=== PATIENT | female | born 1960 | race Caucasian/White ===

== ENCOUNTER 2024-08-26 15:51 | Emergency (ER) | payer MEDICAID, SELFPAY ==
[2024-08-26] VITALS (9 sets, daily range): BP systolic 165–189; BP diastolic 93–123; PULSE 88–131; RESP 14–20; TEMP 36–37.1; O2SAT 94–99; BMI 29.9
--- NOTE | 2024-08-26 16:11 | XR_ITS ---
Examination: AP chest single view TECHNIQUE: AP portable upright chest single view Date and time: August 26, 2024 1635 hours INDICATIONS: Chest pain today FINDINGS: Normal heart size. Suspicious for early left base pneumonia Osseous structures are intact. IMPRESSION: Suspicious for early left base pneumonia
--- NOTE | 2024-08-26 16:52 | EDNOTE_ITS ---
ED Abdominal Pain RME/HPI General Chief Complaint: Abdominal Pain Stated complaint: ABD PAIN Time seen by provider: 08/26/24 16:41 Arrival date/time: 08/26/24 15:51 RME / HPI RME / HPI narrative: 63-year-old female patient with history of hypertension in the past, stopped taking blood pressure medication for more than 8 years, having seen a doctor for 8 years, came in for evaluation regarding abdominal pain. Patient has been having abdominal pain for several weeks, getting worse for the last few days. Patient denies any chest pain. Patient denies any vomiting denies any diarrhea denies any constipation. Family checked his blood sugar few hours ago and it was more than 300. Patient is not taking anything for diabetes. Positive family history of diabetes mellitus. Related Data Home Medications ?Medication ?Instructions ?Recorded ?Confirmed amlodipine 10 mg tablet (Norvasc) 10 mg PO QDAY #0 tab s 06/30/16 hydrochlorothiazide 25 mg tablet 25 mg PO QAM #0 tabs 06/30/16 losartan 50 mg tablet (Cozaar) 50 mg PO QDAY #0 tabs 0 06/30/16 metoprolol succinate 100 mg PO QDAY ##0 06/30/16 tablet,extended release 24 hr Previous Rx's ?Medication ?Instructions ?Recorded lisinopril 20 mg tablet 20 mg PO QDAY #30 tabs 08/26 metformin 500 mg tablet 500 mg PO BIDWMEAL #60 tabs 08/26/24 Allergies Allergy/AdvReac Type Severity Reaction Status Date / Time NKA* Allergy Uncoded 08/26/24 15:54 Review of Systems Review of Systems Narrative Review of Systems: Review of system reviewed and within normal limits except mentioned in HPI ED Exam Narrative Physical exam: VITAL SIGNS: Reviewed. GENERAL APPEARANCE: Alert and interactive, follows commands, no acute distress, HEAD AND FACE: Non-traumatic. ENT: PERRL, pink conjunctivitis, eyelid no trauma, Mucous membrane moist. NECK: Supple, nontender, no nuchal rigidity. CHEST: No tenderness, no crepitus, no paradoxical movement, no retractions. LUNGS: Clear, well ventilated, symmetric, no rales, no wheezing, no ronchi, no stridor, good breath sounds bilaterally. HEART: Tachycardic, no murmur, no gallops. ABDOMEN: Soft, positive bowel sounds, nondistended, no guarding, nontender, no rebound, no masses, RECTAL: Deferred. GENITAL: Deferred. NEUROLOGICAL: Gross motor function intact sensory function intact, Appropriate for age. MUSCULOSKELETAL: low back nontender, full range of motion. EXTREMITIES: Nontender, full range of motion. SKIN: Color pink, dry, no rash, no lacerations, no abrasions, no contusions. LYMPHATICS: Deferred. Course Quality Measures none Orders Category Date Time Status CT Screening NOW Care 08/26/24 18:09 Active Guard Immigration NOW Care 08/26/24 16:11 Active EKG (ED ONLY) *Do not use* NOW Care 08/26/24 16:[address] abdomen pelvis w con Stat Exams 08/26/24 18:08 Completed EKG (ED Only) Stat Exams 08/26/24 16:11 Ordered XR chest 1V portable Stat Exams 08/26/24 16:11 Completed B-Type Natriuretic Peptide Stat Lab 08/26/24 16:56 Completed CBC Stat Lab 08/26/24 16:56 Completed Comprehensive Metabolic Panel Stat Lab 08/26/24 16:56 Completed Drug Screen,Urine Stat Lab 08/26/24 17:40 Completed Hemoglobin A1C [Glycohemoglobin w (eAG)] Stat Lab 08/26/24 16:56 Completed Lipase Stat Lab 08/26/24 16:56 Completed Magnesium Stat Lab 08/26/24 16:56 Completed Partial Thromboplastin Time Stat Lab 08/26/24 16:56 Completed Prothrombin Time with INR Stat Lab 08/26/24 16:56 Completed T4 (Thyroxine) Stat Lab 08/26/24 16:56 Received Thyroid Stimulating Hormone Stat Lab 08/26/24 16:56 Completed Troponin I Stat Lab 08/26/24 16:56 Completed Urinalysis Stat Lab 08/26/24 17:40 Completed Labetalol IV [Trandate IV] Med 08/26/24 16:51 Discontinued 10 mg IVP X1 ONE Lisinopril [Prinivil] Med 08/26/24 21:02 Discontinued 20 mg PO X1 ONE metFORMIN [Glucophage] Med 08/26/24 21:02 Discontinued 500 mg PO X1 ONE Vital Signs Vital signs: Vital Signs Temperature 98.5 F 08/26/24 16:04 Pulse Rate 131 H 08/26/24 16:04 Respiratory Rate 20 08/26/24 16:04 Blood Pressure 189/105 H 08/26/24 16:04 Pulse Oximetry (%) 97 08/26/24 16:04 Oxygen Delivery Method Room Air 08/26/24 16:04 Abdominal Pain MDM MDM Narrative MDM Narrative:: 63-year-old female patient with history of hypertension in the past, stopped taking blood pressure medication for more than 8 years, having seen a doctor for 8 years, came in for evaluation regarding abdominal pain. Patient has been having abdominal pain for several weeks, getting worse for the last few days. Patient denies any chest pain. Patient denies any vomiting denies any diarrhea denies any constipation. Family checked his blood sugar few hours ago and it was more than 300. Patient is not taking anything for diabetes. Positive family history of diabetes mellitus. EKG as interpreted by me showed sinus tachycardia, ventricular rate of 132 bpm, CA interval 150 MS, ST segment elevation depression noted. Patient received IV labetalol and IV fluids for hydration. Patient's workup is significant for WBC count of 13.2 hemoglobin A1c was noted to be 11.1 sugar of 279 with no sign of diabetic ketoacidosis. Chest x-ray came back with possible early pneumonia however patient is not having any cough fever or chest pain or coughing. I am not going to start the patient antibiotic at this time. CT scan of the abdomen and pelvis showed Abnormal thickening of the endometrial stipe, 15.5 mm, differential would include endometrial hyperplasia, malignant neoplasm of the endometrium, recommend elective MRI pelvis follow-up pre and postcontrast Advanced degenerative disc disease L5-S1, 6 mm central calcified osteophyte disc complex Results discussed with the patient patient was advised to plan. PCP and for referral to [facility] regarding her abdomen abnormal thickening of the endometrium. Patient is agreeable plan Patient will be sent home on metformin and lisinopril. Patient was advised to follow-up with [facility] academic centers this coming Wednesday. Patient is stable for discharge home. Patient data External records reviewed:: None Clinical information provided by:: patient Social determinants that could affect healthcare access:: none Patient has the following chronic illnesses:: Hypertension not on medication How is presenting disease/condition affected by chronic disease/condition?: exacerbated by Evaluation data The following diagnostics were reviewed and interpreted by me:: lab results, radiology exam(s) and EKG tracing(s) Lab and/or radiology exams considered but not ordered:: None Interpretation Summary: None Medications / Prescriptions Medications or Prescriptions considered but not ordered:: None Medication administrations:: Medication Administration History Discontinued Medications Labetalol HCl (Labetalol Inj 5 Mg/Ml Vial 20 Ml) 10 mg IVP X1 ONE Stop: 08/26/24 16:52 Last Admin: 08/26/24 18:06 Dose: 10 mg Documented By: NYLA Lisinopril (Lisinopril 20 Mg Tablet) 20 mg PO X1 ONE Stop: 08/26/24 21:03 Metformin HCl (Metformin 500 Mg Tablet) 500 mg PO X1 ONE Stop: 08/26/24 21:03 Labetalol, lisinopril metformin Consultations Consultation(s) initiated? (list below): No Diagnosis Differential diagnosis abdominal pain: abdominal pain and other (Diabetes mellitus new onset, hypertension, abdominal pain) Most likely diagnosis given after review of the tests above:: Diabetes mellitus new onset, hypertension abdominal pain Admission Indicated Admission indicated?: not indicated Admission Request Was there a request for admission?: No Disposition Plan Disposition Plan: Discharge Discharge Attestation Discharge Attestation: The patient and all family members were given an opportunity to ask questions and understood the discharge instructions. Discharge instructions specifically effects, indications for sooner follow up or return to the emergency department, and the expected course of current diagnosis. Patient condition: Stable Discharge Plan Plan Patient Disposition: HOME (Self Care) Discharge Disposition comment: Stable Prescriptions/Referrals Prescriptions/Med Rec: New metformin 500 mg tablet 500 mg PO BIDWMEAL Qty: 60 0RF lisinopril 20 mg tablet 20 mg PO QDAY Qty: 30 0RF No Action losartan [Cozaar] 50 MG tablet 50 mg PO QDAY Qty: 0 metoprolol succinate 100 MG tablet extended release 24 hr PO QDAY Qty: 0 amlodipine [Norvasc] 10 MG tablet 10 mg PO QDAY Qty: 0 hydrochlorothiazide 25 MG tablet 25 mg PO QAM Qty: 0 Referrals: [facility] [Outside] - 08/28/24 Claire Vidales FNP [Emergency Midlevel Provider] - In 1 week Jackson Mccann MD [Primary Care Provider] - In 1 week Problem List Clinical Impression: Hypertension, Recent onset of diabetes mellitus Patient/Caregiver Discharge Instructions Discharge Activity: activity as tolerated Education Materials: Managing Type 2 Diabetes Additional Instructions: Thank you for the opportunity for serving you today. You are stable for discharged . You are advised to: Follow-up with [facility] Return to ED for worsening of symptoms Increase oral fluids Take medication as prescribed Print Language: [place] Stand Alone Forms: [facility] Award Info., Patient Portal Info Letter
[2024-08-26 17:08] LABS: Basophils # (Auto) 0.1 Thou/mm3 (0.0-0.2); Basophils % (Auto) 1 % (0-2.5); Eosinophils % (Auto) 0 % (0-10); Hematocrit 45.4 % (36.0-46.0); Hemoglobin 16.2 g/dL (12.0-16.0); Immature Granulocytes % (Auto) 0 % (0-0); Immature Granulocytes Auto 0.05 Thou/mm3 (0.00-0.00); Lymphocytes # (Auto) 2.6 Thou/mm3 (1.0-4.8); Lymphocytes % (Auto) 19 % (10-50); Mean Corpuscular HGB Conc 35.7 g/dl (31.0-37.0); Mean Corpuscular Hemoglobin 29.2 pg (25.0-35.0); Mean Corpuscular Volume 82 fL (80-100); Monocytes # (Auto) 0.7 Thou/mm3 (0.0-0.8); Monocytes % (Auto) 6 % (0-12); Neutrophils # (Auto) 9.8 Thou/mm3 (1.8-7.7); Neutrophils % (Auto) 74 % (37-80); Nucleated Red Blood Cell % 0 /100 WBC (0); Platelet Count 264 Thou/mm3 (140-440); RDW Standard Deviation 38.5 fL (36.4-46.3); Red Blood Count 5.54 Miln/mm3 (4.00-5.20); White Blood Count 13.2 Thou/mm3 (3.6-11.0)
[2024-08-26 17:17] LABS: Partial Thromboplastin Time 25.4 Seconds (22.0-36.0); Prothrombin Time 11.2 Seconds (9.0-12.2)
[2024-08-26 17:31] LABS: Alanine Aminotransferase 16 U/L (10-49); Albumin, Serum 4.9 gm/dL (3.4-4.8); Albumin/Globulin Ratio 1.6 (1.2-2.2); Alkaline Phosphatase 105 U/L (46-116); Anion Gap 14 (7-16); Aspartate Amino Transferase 16 U/L (0-34); BUN/Creatinine Ratio 11 Ratio (12-20); Blood Urea Nitrogen 8 mg/dL (9-23); Calcium 9.4 mg/dL (8.3-10.6); Calcium (Corrected) 9.4 mg/dL (8.5-10.1); Carbon Dioxide 21.5 mMol/L (20.0-31.0); Chloride 102 mMol/L (98-107); Creatinine (Component) 0.7 mg/dL (0.6-1.3); Estimated Creatinine Clearance 86.8 mL/min (>60); Globulin 3.1 gm/dL (2.3-3.5); Glucose 279 mg/dL (74-106); Lipase 35 U/L (12-53); Magnesium 1.8 mg/dL (1.6-2.6); Osmolality,Calculated 282 (275-295); Sodium 137 mMol/L (136-145); Troponin I < 0.002 ng/mL (0.0-0.045); eGFR > 60 See Note
[2024-08-26 17:46] LABS: Glucose Estimated Average 272 mg/dL (80-131); Hemoglobin A1C 11.1 % Hgb (4.8-6.0)
[2024-08-26] MEDS: LABETALOL INJ 5 MG/ML VIAL 20 ML 10 MG IVP (18:06)
--- NOTE | 2024-08-26 18:08 | XR_ITS ---
Examination: CT abdomen with intravenous contrast CT pelvis with intravenous contrast 2-D coronal reconstructions 2-D sagittal reconstructions Date and time of exam:August 26, 2024 1837 hours COMPARISON: June 30, 2016 INDICATIONS: Onset abdominal pain today. CTDI: vol (mGy) 12 DLP: (mGycm) 620 Technique: Multiple axial sections of the abdomen and pelvis have been obtained. 64 slice high-resolution scanner used. 3 mm axial sections have been obtained, post intravenous injection of 60 cc [id number] 2-D sagittal, coronal reconstructions obtained. Low dose protocols were performed. One or more of the following dose reduction techniques were used; automated exposure control, adjustment of the mA and/or KV according to patient size, use of iterative reconstruction technique. Findings: No focal liver or splenic lesions No gallstones No pancreatic or adrenal mass No renal or ureteral calculi, no hydronephrosis Aorta is not enlarged Normal appendix No bowel obstruction No diverticulitis Anteverted uterus, abnormal thickening of the endometrial stripe, 15.5 mm in this postmenopausal individual Urinary bladder intact Advanced degenerative disc disease L5-S1 with 6 mm calcified osteophyte disc complex centrally IMPRESSION: Abnormal thickening of the endometrial stipe, 15.5 mm, differential would include endometrial hyperplasia, malignant neoplasm of the endometrium, recommend elective MRI pelvis follow-up pre and postcontrast Advanced degenerative disc disease L5-S1, 6 mm central calcified osteophyte disc complex
[2024-08-26 18:30] LABS: B-Type Natriuretic Peptide < 20 pg/mL (0-100)
[2024-08-26 18:33] LABS: Collection Type, Urine Clean Catch
[2024-08-26 18:39] LABS: Thyroid Stimulating Hormone 0.95 uIU/mL (0.55-4.78)
[2024-08-26 18:47] LABS: Bacteria,Urine Rare; Bilirubin,Urine Negative (Negative); Blood,Urine Negative (Negative); Clarity,Urine Clear (Clear/Hazy); Color,Urine Colorless (Lt Yel-Yel); Glucose, Urine 4+ (Negative); Ketones,Urine 1+ (Negative); Leukocyte Esterase,Urine Negative (Negative); Nitrite,Urine Negative (Negative); Protein,Urine Negative (Neg - Trace); RBC,Urine < 1 /hpf (0-3); Specific Gravity,Urine 1.007 (1.001-1.035); Squamous Epithelial Cell,Urine < 1 /hpf (0-5); Urobilinogen,Urine Negative mg/dL (0.0-1.0); WBC,Urine < 1 /hpf (0-5)
[2024-08-26 18:51] LABS: Amphetamine/Methamp Scrn,U Negative (Negative); Barbiturate Screen,Urine Negative (Negative); Benzodiazepines Screen,Urine Negative (Negative); Benzoylecgonine Screen, Ur Negative (Negative); Fentanyl Screen,Urine Negative (Negative); Opiate Screen,Urine Negative (Negative); THC Screen,Urine Negative (Negative)
[2024-08-26] MEDS: Lisinopril 20 MG TABLET PO (21:28)
[2024-08-26] MEDS: metFORMIN 500 MG TABLET PO (21:28)
[2024-08-28 23:23] LABS: T4 (Thyroxine) 9.6 mcg/dL (4.5-10.9)
== END 2024-08-26 21:31 | disposition home or self-care (01) ==
PROVIDERS: Nurse Practitioner Family; Nurse Practitioner Primary Care; Emergency Provider Family Medicine; PCP Family Medicine
DX: R10.9 Unspecified abdominal pain (principal); E11.9 Type 2 diabetes mellitus without complications; I10 Essential (primary) hypertension
CPT/HCPCS: 36415; 71045; 74177; 80053; 80307; 81001; 83036; 83690; 83735; 83880; 84436; 84443; 84484; 85025; 85610; 85730; 93005; 96374; 99285; A4649; J3490; Q9967; A9270; J1920